=== PATIENT | female | born 1980 | race Caucasian/White ===

== ENCOUNTER 2017-04-07 16:38 | Emergency (ER) | payer BC ==
[~2017-04-07] VITALS: Ht 170.2 cm; Wt 132.0 kg
[~2017-04-07 16:38] MED LIST: CIPR500T4 PO; GUAI600 PO
[2017-04-07 16:41] VITALS: BP 145/87; PULSE 87; RESP 16; TEMP 98.7; O2SAT 100
[2017-04-07 17:02] LABS: BLOOD, URINE LARGE (NEG); GLUCOSE,URINE NEG (NEG); KETONE, URINE NEG (NEG); NITRITE,URINE NEG (NEG)
[2017-04-07 17:13] LABS: URINE COLOR YELLOW (YELLW/STRAW)
[2017-04-07 17:14] LABS: BACTERIA, URINE FEW /hpf; COMMENT (UR) CULTURE INDICATED; CULTURE IF INDICATED CULTURE INDICATED; MUCUS URINE FEW /lpf (OCC); SQUAMOUS EPITHELIAL CELL URINE > 8 /hpf (0-5)
--- NOTE | 2017-04-07 17:18 | PD ---
HPI Chief Complaint: Complaint Time Seen by Provider: 16:55 Travel History International Travel<30 days: No Contact w/Intl Traveler<30days: No Traveled to known affect area: No History of Present Illness HPI 36-year-old female presents to emergency department for evaluation of dysuria, frequency, urgency. She reports symptoms present the last 7 days. She denies fever, chills, back pain, nausea/vomiting, abdominal pain. She reports similar symptoms in the past with previous UTI. She reports last UTI was several years ago. She denies vaginal discharge or irritation. PFSH Past Medical History Medical History: Denies Significant Hx Hx Anticoagulant Therapy: No Diabetes: No Diminished Hearing: No Influenza Vaccination: No ?: Not LMP: 1 WEEK AGO Tubal Ligation: Yes Past Surgical History Section: Yes Social History Alcohol Use: No Tobacco Use: Yes (11/03 PPD) Substance Use: No Allergies-Medications (Allergen,Severity, Reaction): Coded Allergies: Penicillin (Verified Allergy, Severe, RASH, 04/07/17) Reported Meds & Prescriptions Reported Meds & Active Scripts Active No Active Prescriptions or Reported Medications Review of Systems Except as stated in HPI: all other systems reviewed are Neg Physical Exam Narrative GENERAL: Well-nourished, well-developed patient. SKIN: Focused skin assessment warm/dry. HEAD: Normocephalic. EYES: No scleral icterus. No injection or drainage. NECK: Supple, trachea midline. No JVD or lymphadenopathy. CARDIOVASCULAR: Regular rate and rhythm without murmurs, gallops, or rubs. RESPIRATORY: Breath sounds equal bilaterally. No accessory muscle use. GASTROINTESTINAL: Abdomen soft, non-tender, nondistended. MUSCULOSKELETAL: No cyanosis, or edema. BACK: Nontender without obvious deformity. No CVA tenderness. Data Data Last Documented VS Vital Signs Date Time Temp Pulse Resp B/P Pulse Ox O2 Delivery O2 Flow Rate FiO2 04/07/17 16:41 98.7 87 16 145/87 100 Orders Urinalysis - C+S If Indicated (04/07/17 16:42) Urine Culture (04/07/17 16:55) Labs Laboratory Tests Test 04/07/17 16:55 Urine Color YELLOW Urine Turbidity CLOUDY Urine pH 6.0 Urine Specific [place] 1.030 Urine Protein TRACE mg/dL Urine Glucose (UA) NEG mg/dL Urine Ketones NEG mg/dL Urine Occult Blood LARGE Urine Nitrite NEG Urine Bilirubin NEG Urine Leukocyte Esterase MOD Urine RBC 4-9 /hpf Urine WBC 9-14 /hpf Urine Squamous Epithelial > 8 /hpf Cells Urine Bacteria FEW /hpf Urine Mucus FEW /lpf Microscopic Urinalysis Comment CULTURE INDICATED MDM Medical Decision Making Medical Screen Exam Complete: Yes Emergency Medical Condition: Yes Differential Diagnosis UTI, pyonephritis, dysuria, urinary frequency Narrative Course 36-year-old female presents emergency department for evaluation of dysuria, urgency, frequency for 7 days. She reports similar symptoms in the past with UTI. She denies fever or chills, abdominal pain, nausea vomiting, back pain. Patient is well-appearing is benign. UA pending UA positive for leukocytes, red blood cells, bacteria. Patient will be treated with Bactrim DS for UTI. Instructed to follow up primary care provider. Return precautions discussed. Diagnosis Primary Impression: UTI (urinary tract infection) Qualified Code: N30.01 - Acute cystitis with hematuria Referrals: Primary Care Physician Additional Instructions: Take the medication as prescribed. Drink plenty of fluids. Follow-up with her primary doctor for recheck. Return to the emergency department if he developed new or worsening symptoms. Scripts Sulfamethoxazole-Trimethoprim (Bactrim DS)800-160 Mg Tab1 Tab PO BID #6 TAB Prov:Karina Buckner 04/07/17 Disposition: 01 DISCHARGE HOME Condition: Stable Karina Buckner Apr 07, 2017 17:18
[2017-04-07] MEDS ORDERED: BACT800T5 PO (17:22)
== END 2017-04-07 17:30 | disposition home or self-care (01) ==
LOC: PHEFT 16:38
DX: N30.01 Acute cystitis with hematuria (principal); B96.89 Other specified bacterial agents as the cause of diseases classified elsewhere
CPT/HCPCS: 81001; 87086; 99283

== ENCOUNTER 2017-09-24 15:11 | Emergency (ER) | payer BC ==
[~2017-09-24] VITALS: Ht 170.2 cm; Wt 138.0 kg
[~2017-09-24 15:11] MED LIST changes: +BACT800T5 PO; -CIPR500T4 PO; -GUAI600 PO
[2017-09-24 15:14] VITALS: BP 160/74; PULSE 99; RESP 16; TEMP 90.2; TEMP 98.2; O2SAT 99
[2017-09-24] MEDS ORDERED: SODIUM CHLORIDE 0.9% FLUSH 10 ML FLUSH IV FLUSH PRN (15:45)
[2017-09-24 16:07] VITALS: O2SAT 97
[2017-09-24 16:15] LABS: AUTOMATED NEUTROPHIL # 5.6 TH/MM3 (1.8-7.7); BASOPHIL # 0.1 TH/MM3 (0-0.2); BASOPHIL % 1.3 % (0.0-2.0); EOSINOPHIL # 0.3 TH/MM3 (0-0.4); EOSINOPHIL % 2.4 % (0.0-4.0); HEMATOCRIT 30.3 % (35.0-46.0); HEMO FLAGS AUTO DIFF; LYMPH % 38.4 % (9.0-44.0); LYMPHOCYTE # 4.1 TH/MM3 (1.0-4.8); MEAN CELL VOLUME 77.7 FL (80.0-100.0); MEAN CORPUSCULAR HEMOGLOBIN 24.4 PG (27.0-34.0); MEAN CORPUSCULAR HGB CONC 31.4 % (32.0-36.0); MONO % 5.2 % (0.0-8.0); NEUT % 52.7 % (16.0-70.0); PLATELET COUNT 408 TH/MM3 (150-450); RED CELL DISTRIBUTION WIDTH 16.1 % (11.6-17.2); WHITE BLOOD COUNT 10.7 TH/MM3 (4.0-11.0)
[2017-09-24 16:21] LABS: CHLORIDE 103 MEQ/L (98-107); POTASSIUM 3.6 MEQ/L (3.5-5.1); SODIUM (NA) 137 MEQ/L (136-145)
[2017-09-24 16:25] LABS: ANION GAP 7 MEQ/L (5-15); BICARBONATE 27.5 MEQ/L (21.0-32.0); BLOOD UREA NITROGEN 9 MG/DL (7-18)
[2017-09-24 16:28] LABS: ALT (GPT) 16 U/L (10-53); AST (GOT) 11 U/L (15-37); GLOMERULAR FILTRATION RATE 135 ML/MIN (>89)
[2017-09-24 16:30] LABS: TOTAL BILIRUBIN ADULT 0.1 MG/DL (0.2-1.0)
[2017-09-24 16:31] LABS: ALKALINE PHOSPHATASE 88 U/L (45-117)
[2017-09-24 16:41] LABS: SCAN/DIFF AUTO DIFF CONFIRMED
[2017-09-24] MEDS ORDERED: FURO1TAB62 PO (16:48)
--- NOTE | 2017-09-24 16:49 | PD ---
HPI Chief Complaint: Edema Time Seen by Provider: 15:29 Travel History International Travel<30 days: No Contact w/Intl Traveler<30days: No Traveled to known affect area: No History of Present Illness HPI patient's 36 years old and complains of bilateral lower extremity edema for the past 34 days. 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 She reports no shortness of breath or chest pain. Urination has been normal. No similar prior episodes. Edema is painless. PFSH Past Medical History Hx Anticoagulant Therapy: No Cardiovascular Problems: Yes (HX PRECLAMPSIA) Diabetes: No Diminished Hearing: No Tetanus Vaccination: Unknown Influenza Vaccination: No ?: Not LMP: 09/18/17 Tubal Ligation: Yes Past Surgical History Section: Yes (X3) Social History Alcohol Use: No Tobacco Use: Yes (/ PPD) Substance Use: No Allergies-Medications (Allergen,Severity, Reaction): Coded Allergies: penicillin G (Unverified Allergy, Severe, RASH, 09/24/17) Reported Meds & Prescriptions Reported Meds & Active Scripts Active Lasix (Furosemide) 20 Mg Tab 20 Mg PO DAILY 5 Days Review of Systems Except as stated in HPI: all other systems reviewed are Neg General / Constitutional: No: Fever Cardiovascular: No: Chest Pain or Discomfort Respiratory: No: Cough, Shortness of Breath Physical Exam Narrative GENERAL: 36-year-old female pleasant well-nourished well-developed SKIN: Focused skin assessment warm/dry. HEAD: Atraumatic. Normocephalic. EYES: Pupils equal and round. No scleral icterus. No injection or drainage. ENT: No nasal bleeding or discharge. Mucous membranes pink and moist. NECK: Trachea midline. No JVD. CARDIOVASCULAR: Regular rate and rhythm. No murmur appreciated. RESPIRATORY: No accessory muscle use. Clear to auscultation. Breath sounds equal bilaterally. GASTROINTESTINAL: Abdomen soft, non-tender, nondistended. MUSCULOSKELETAL: No gross deformity. Minimal nonpitting edema bilateral lower extremities primarily overlying the ankle malleoli. 2+ dorsalis pedis bilaterally. NEUROLOGICAL: Awake and alert. No obvious cranial nerve deficits. Motor grossly within normal limits. Normal speech. PSYCHIATRIC: Appropriate mood and affect; insight and judgment normal. Data Data Last Documented VS Vital Signs Date Time Temp Pulse Resp B/P (MAP) Pulse Ox O2 Delivery O2 Flow Rate FiO2 09/24/17 17:12 09/24/17 17:00 89 16 97 Room Air 09/24/17 15:14 98.2 Vital signs reviewed Orders Orders Complete Blood Count With Diff (09/24/17 15:37) Comprehensive Metabolic Panel (09/24/17 15:37) Iv Access Insert/Monitor (09/24/17 15:37) Ecg Monitoring (09/24/17 15:37) Oximetry (09/24/17 15:37) Sodium Chloride 0.9% Flush (Ns Flush) (09/24/17 15:45) Ed Discharge Order (09/24/17 16:49) Labs Laboratory Tests Test 09/24/17 16:05 White Blood Count 10.7 TH/MM3 Red Blood Count 3.90 MIL/MM3 Hemoglobin 9.5 GM/DL Hematocrit 30.3 % Mean Corpuscular Volume 77.7 FL Mean Corpuscular Hemoglobin 24.4 PG Mean Corpuscular Hemoglobin Concent 31.4 % Red Cell Distribution Width 16.1 % Platelet Count 408 TH/MM3 Mean Platelet Volume 6.5 FL Neutrophils (%) (Auto) 52.7 % Lymphocytes (%) (Auto) 38.4 % Monocytes (%) (Auto) 5.2 % Eosinophils (%) (Auto) 2.4 % Basophils (%) (Auto) 1.3 % Neutrophils # (Auto) 5.6 TH/MM3 Lymphocytes # (Auto) 4.1 TH/MM3 Monocytes # (Auto) 0.6 TH/MM3 Eosinophils # (Auto) 0.3 TH/MM3 Basophils # (Auto) 0.1 TH/MM3 CBC Comment AUTO DIFF Differential Comment AUTO DIFF CONFIRMED Blood Urea Nitrogen 9 MG/DL Creatinine 0.52 MG/DL Random Glucose 73 MG/DL Total Protein 7.6 GM/DL Albumin 3.4 GM/DL Calcium Level 8.3 MG/DL Alkaline Phosphatase 88 U/L Aspartate Amino Transf (AST/SGOT) 11 U/L Alanine Aminotransferase (ALT/SGPT) 16 U/L Total Bilirubin 0.1 MG/DL Sodium Level 137 MEQ/L Potassium Level 3.6 MEQ/L Chloride Level 103 MEQ/L Carbon Dioxide Level 27.5 MEQ/L Anion Gap 7 MEQ/L Estimat Glomerular Filtration Rate 135 ML/MIN MDM Medical Decision Making Medical Screen Exam Complete: Yes Emergency Medical Condition: Yes Medical Record Reviewed: Yes Differential Diagnosis venous insufficiency, renal failure, hypoalbuminemia, DVT, CHF Narrative Course CBC & BMP Diagram 09/24/17 16:05 Total Protein 7.6, Albumin 3.4, Calcium Level 8.3 L, Alkaline Phosphatase 88, Aspartate Amino Transf (AST/SGOT) 11 L, Alanine Aminotransferase (ALT/SGPT) 16, Total Bilirubin 0.1 L Patient has mild nonpitting edema bilateral lower extremities. DVT is considered very low probability. Elevation advised as well as prescribed time off from work. Diagnosis Primary Impression: Edema Qualified Codes: R60.0 - Localized edema Referrals: Primary Care Physician 2 days Med/Other Pt SpecificInfo: Prescription(s) given Scripts Furosemide (Lasix) 20 Mg Tab 20 MG PO DAILY for 5 Days, #5 TAB 0 Refills Prov: Abhay Parrish MD 09/24/17 Disposition: 01 DISCHARGE HOME Condition: Stable Abhay Parrish MD Sep 24, 2017 16:49
[2017-09-24 17:00] VITALS: BP 164/89; PULSE 89; RESP 16; O2SAT 97
== END 2017-09-24 17:12 | disposition home or self-care (01) ==
LOC: PHED 15:11
DX: R60.0 Localized edema (principal); F17.200 Nicotine dependence, unspecified, uncomplicated
CPT/HCPCS: 80053; 85025; 99283